=== PATIENT | male | born 1990 | race Caucasian/White ===

== ENCOUNTER 2017-02-28 18:27 | Emergency (ER) | payer SELFPAY ==
[2017-02-28 18:29] VITALS: BP 178/93; PULSE 123; RESP 18; TEMP 100.6; O2SAT 98
[2017-02-28 19:55] LABS: AUTOMATED NEUTROPHIL # 10.6 TH/MM3 (1.8-7.7); BASOPHIL % 0.4 % (0.0-2.0); EOSINOPHIL # 0.2 TH/MM3 (0-0.4); EOSINOPHIL % 1.5 % (0.0-4.0); HEMATOCRIT 42.6 % (39.0-51.0); HEMOGLOBIN 14.7 GM/DL (13.0-17.0); LYMPH % 5.4 % (9.0-44.0); LYMPHOCYTE # 0.7 TH/MM3 (1.0-4.8); MEAN CELL VOLUME 92.9 FL (80.0-100.0); MEAN CORPUSCULAR HEMOGLOBIN 32.1 PG (27.0-34.0); MEAN CORPUSCULAR HGB CONC 34.5 % (32.0-36.0); MEAN PLATELET VOLUME 9.3 FL (7.0-11.0); MONO % 9.7 % (0.0-8.0); MONOCYTE # 1.2 TH/MM3 (0-0.9); PLATELET COUNT 234 TH/MM3 (150-450); RED BLOOD COUNT 4.58 MIL/MM3 (4.50-5.90); RED CELL DISTRIBUTION WIDTH 13.3 % (11.6-17.2); WHITE BLOOD COUNT 12.8 TH/MM3 (4.0-11.0)
[2017-02-28 19:58] LABS: ALBUMIN 4.1 GM/DL (3.4-5.0); AST (GOT) 50 U/L (15-37); BICARBONATE 28.7 MEQ/L (21.0-32.0); BLOOD UREA NITROGEN 13 MG/DL (7-18); CALCIUM 9.1 MG/DL (8.5-10.1); CHLORIDE 103 MEQ/L (98-107); CREATININE 0.98 MG/DL (0.60-1.30); GLOMERULAR FILTRATION RATE 93 ML/MIN (>89); GLUCOSE,RANDOM 107 MG/DL (74-106); SODIUM (NA) 138 MEQ/L (136-145)
[2017-02-28 19:59] LABS: ALT (GPT) 87 U/L (12-78)
[2017-02-28 20:02] LABS: ALKALINE PHOSPHATASE 72 U/L (45-117); TOTAL BILIRUBIN ADULT 0.6 MG/DL (0.2-1.0); TOTAL PROTEIN 7.6 GM/DL (6.4-8.2)
--- NOTE | 2017-02-28 21:44 | PD ---
HPI Chief Complaint: Psychiatric Symptoms Time Seen by Provider: 18:42 Travel History International Travel<30 days: No Contact w/Intl Traveler<30days: No Traveled to known affect area: No History of Present Illness HPI Pt is a 26-year-old male presenting to the emergency department for evaluation of increased stress for the last 2 weeks. He also reports feeling more depressed. Pt is on Vyvanse. Denies any suicidal thoughts. He also reports body aches, SOB, cough, nasal congestion. He denies a fever, nausea, vomiting, abdominal pain, chest pain. He denies any recent life stressors. Cold symptoms started gradually, they have been ongoing for 2-3 days. He has not taken any medications to alleviate his symptoms. [facility] Past Medical History Medical History: Denies Significant Hx Social History Tobacco Use: No Allergies-Medications (Allergen,Severity, Reaction): Coded Allergies: No Known Allergies (Unverified , 02/28/17) Review of Systems Except as stated in HPI: all other systems reviewed are Neg HENT: Positive: Congestion, No: Headaches Cardiovascular: No: Chest Pain or Discomfort Respiratory: Positive: Cough, Shortness of Breath Gastrointestinal: No: Nausea, Vomiting, Abdominal Pain Psychiatric: Positive: Depression, No: Suicidal Ideations, Substance Abuse Physical Exam Narrative GENERAL: Well-developed, well-nourished, alert male. Presenting in no acute distress. SKIN: Warm and dry. HEAD: Normocephalic. EYES: No scleral icterus. No injection or drainage. NECK: Supple, trachea midline. No JVD or lymphadenopathy. CARDIOVASCULAR: Tachycardic RESPIRATORY: No accessory muscle use. No increased work of breathing. Data Data Last Documented VS Vital Signs Date Time Temp Pulse Resp B/P (MAP) Pulse Ox O2 Delivery O2 Flow Rate FiO2 02/28/17 18:29 100.6 123 18 178/93 (121) 98 Orders Orders Complete Blood Count With Diff (02/28/17 18:44) Comprehensive Metabolic Panel (02/28/17 18:44) Group A Rapid Strep Screen (02/28/17 18:44) Influenzae A/B Antigen (02/28/17 18:44) Strep Culture (Group A) (02/28/17 19:09) Labs Laboratory Tests Test 02/28/17 19:09 White Blood Count 12.8 TH/MM3 Red Blood Count 4.58 MIL/MM3 Hemoglobin 14.7 GM/DL Hematocrit 42.6 % Mean Corpuscular Volume 92.9 FL Mean Corpuscular Hemoglobin 32.1 PG Mean Corpuscular Hemoglobin Concent 34.5 % Red Cell Distribution Width 13.3 % Platelet Count 234 TH/MM3 Mean Platelet Volume 9.3 FL Neutrophils (%) (Auto) 83.0 % Lymphocytes (%) (Auto) 5.4 % Monocytes (%) (Auto) 9.7 % Eosinophils (%) (Auto) 1.5 % Basophils (%) (Auto) 0.4 % Neutrophils # (Auto) 10.6 TH/MM3 Lymphocytes # (Auto) 0.7 TH/MM3 Monocytes # (Auto) 1.2 TH/MM3 Eosinophils # (Auto) 0.2 TH/MM3 Basophils # (Auto) 0.0 TH/MM3 CBC Comment DIFF FINAL Differential Comment Blood Urea Nitrogen 13 MG/DL Creatinine 0.98 MG/DL Random Glucose 107 MG/DL Total Protein 7.6 GM/DL Albumin 4.1 GM/DL Calcium Level 9.1 MG/DL Alkaline Phosphatase 72 U/L Aspartate Amino Transf (AST/SGOT) 50 U/L Alanine Aminotransferase (ALT/SGPT) 87 U/L Total Bilirubin 0.6 MG/DL Sodium Level 138 MEQ/L Potassium Level 3.8 MEQ/L Chloride Level 103 MEQ/L Carbon Dioxide Level 28.7 MEQ/L Anion Gap 6 MEQ/L Estimat Glomerular Filtration Rate 93 ML/MIN MDM Medical Decision Making Medical Screen Exam Complete: Yes Emergency Medical Condition: Yes Interpretation(s) Vital Signs Date Time Temp Pulse Resp B/P (MAP) Pulse Ox O2 Delivery O2 Flow Rate FiO2 02/28/17 18:29 100.6 123 18 178/93 (121) 98 Differential Diagnosis Depression versus anxiety versus stress versus viral URI versus influenza versus other Narrative Course Patient is a 26-year-old male presenting to the emergency department for evaluation of depression, anxiety and cold and flu symptoms. Patient is tachycardic on arrival with a low-grade temp. He denied any suicidal ideations. Patient is awaiting bed placement. Protocol is initiated in triage. Patient presented to the triage desk, he stated he did not want to wait. He was encouraged to be evaluated and further declined. AMA: The risks of leaving against medical advice without further evaluation treatment were discussed with the patient. These risks include cardiac dysfunction, cardiac dysrhythmia, possible heart attack, possible stroke or . The patient indicated understanding of these risks and appeared to have the capacity to make this decision. Diagnosis Primary Impression: Left against medical advice Audelia Ngo Feb 28, 2017 21:44
== END 2017-02-28 21:15 | disposition left against medical advice (07) ==
LOC: NED 18:27
DX: F32.9 Major depressive disorder, single episode, unspecified (principal); F41.9 Anxiety disorder, unspecified; R00.0 Tachycardia, unspecified; R09.81 Nasal congestion; R05 Cough; R06.02 Shortness of breath
CPT/HCPCS: 80053; 85025; 87081; 87804; 87880; 99283

== ENCOUNTER 2017-03-24 21:55 | Emergency (ER) | payer BC ==
[2017-03-24 22:27] VITALS: BP 149/79; PULSE 95; RESP 16; TEMP 98.8; O2SAT 100
[2017-03-24 22:39] VITALS: BP 156/104; PULSE 108; RESP 20; TEMP 98.7; O2SAT 98
[2017-03-24] MEDS ORDERED: LISD70 (22:43)
[2017-03-25] MEDS ORDERED: HYDR-3583 PO ×2 (01:01→04:54)
[2017-03-25 04:54] VITALS: BP 156/101; PULSE 90; RESP 18; O2SAT 98
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
== END 2017-03-25 05:04 | disposition home or self-care (01) ==
LOC: PHED 21:55
DX: S29.012A Strain of muscle and tendon of back wall of thorax, initial encounter (principal); Z72.0 Tobacco use
CPT/HCPCS: 99283